=== PATIENT | female | born 1960 | race Caucasian/White ===

== ENCOUNTER 2016-11-07 14:23 | Outpatient (CLI) | payer OTHER | END 2016-11-07 14:24 | disposition home or self-care (01) | LOC: NC 14:23 | PROVIDERS: ATTEND Internal Medicine | DX: K90.41 Non-celiac gluten sensitivity (principal); F17.200 Nicotine dependence, unspecified, uncomplicated; Z68.30 Body mass index [BMI] 30.0-30.9, adult; I10 Essential (primary) hypertension; Z71.3 Dietary counseling and surveillance ==

== ENCOUNTER 2016-11-14 13:42 | Outpatient (CLI) | payer OTHER | END 2016-11-14 13:43 | disposition home or self-care (01) | LOC: NC 13:42 | PROVIDERS: ATTEND Internal Medicine | DX: K90.41 Non-celiac gluten sensitivity (principal); Z71.3 Dietary counseling and surveillance; Z68.30 Body mass index [BMI] 30.0-30.9, adult; I10 Essential (primary) hypertension; Z87.891 Personal history of nicotine dependence ==